=== PATIENT | male | born 1965 | race Caucasian/White ===

== ENCOUNTER 2016-09-23 14:57 | Emergency (ER) | payer MEDICARE ==
[~2016-09-23 14:57] MED LIST: AMITIZA8 MCG PO; ASAB PO; AT25 PO; BEN25 PO; CLARIT10 PO; CLOZAPINE PO; CLOZAPINE100 MG PO; COGEN1 PO; COREG3 PO; D.O.S.100 MG PO; DEP250 PO; DEPAKOTEER PO; FLOMAX4 PO; K-TABS10 MEQ PO; L40 PO; PRILOSEC40 MG PO; PRIN2.5 PO; PROAIRRESP INH; SPIRIVA INH; SYN1 PO; THIOTHIXENE PO; ZOCOR20 PO; ZYPREXA ZYDI20 MG PO
[2016-09-23 16:53] LABS: BASOPHILS 0.6 %; BASOPHILS ABSOLUTE 0.05 10/3/uL (0.0-0.16); EOSINOPHILS 5.1 %; EOSINOPHILS ABSOLUTE 0.45 10/3/uL (0.0-0.53); HEMATOCRIT 36.5 % (40.0-51.0); HEMOGLOBIN 12.5 g/dL (13.6-17.8); IMMATURE GRANULOCYTES 0.2 %; IMMATURE GRANULOCYTES ABSOLUTE 0.02 10/3/uL (0.0-0.11); LYMPHOCYTES 25.7 %; LYMPHOCYTES ABSOLUTE 2.26 10/3/uL (0.67-4.30); MEAN CORPUS HGB CONC 34.2 g/dL (32.0-36.0); MEAN CORPUSCULAR HEMOGLOB 32.1 pg (26.0-34.0); MEAN CORPUSCULAR VOLUME 93.8 fL (80-100); MEAN PLATELET VOLUME 9.5 fL (9.2-13.0); MONOCYTES 15.9 %; NEUTROPHILS 52.5 %; NEUTROPHILS ABSOLUTE 4.61 10/3/uL (2.02-8.40); RED CELL COUNT 3.89 10/6/uL (4.7-6.1); WHITE BLOOD CELLS 8.8 10/3/uL (4.5-10.5)
[2016-09-23 16:55] LABS: MANUAL DIFF NO %; PLATELET COUNT 279 10/3/uL (150-400)
[2016-09-23 17:12] LABS: CALCIUM, SERUM 9.1 MG/DL (8.5-10.4); CHLORIDE, SERUM 102 MMOL/L (96-112); CO2 (CARBON DIOXIDE) 27 MMOL/L (24-34); CREATININE 0.81 MG/DL (0.70-1.30); GFR AFRICAN AMERICAN 119 ML/MIN (>=60); GFR NON AFRICAN AMERICAN 103 ML/MIN (>=60); GLUCOSE, SERUM 83 MG/DL (60-99); SGOT(AST) 14 U/L (5-40); SGPT(ALT) 13 U/L (5-65); SODIUM, SERUM 140 MMOL/L (135-148); TOTAL BILIRUBIN 0.3 MG/DL (0-1.2)
[2016-09-23 17:14] LABS: ALBUMIN 3.8 G/DL (3.5-5.0); ALKALINE PHOSPHATASE 169 U/L (45-117); BUN (BLOOD UREA NITROGEN) 23 MG/DL (6-23); GLOBULIN 3.9 G/DL (2.5-4.1); POTASSIUM, SERUM 4.3 MMOL/L (3.5-5.3); TOTAL PROTEIN 7.7 G/DL (6.0-8.5)
[2016-09-23 17:23] LABS: ASCORBIC ACID (UR NOT ORDER) NEG (NEG); BILIRUBIN, URINE SMALL (NEG); KETONE, URINE TRACE MG/DL (NEG); LEUKOCYTE ESTERASE(NOT OR NEG (NEG); NITRITE (URINE) NEG (NEG); WBC (NOT ORDERED) (RFLEX) 5 (0-5)
[2016-09-23 17:26] LABS: ALCOHOL < 10 MG/DL (0)
[2016-09-23 17:50] LABS: AMPHETAMINES (NOT ORD) POS (NEG); BARBITURATES (NOT ORDERED NEG (NEG); BENZODIAZEPINES (NOT ORD) NEG (NEG); CANNABINOIDS (THC) NEG (NEG); COCAINE (NOT ORDERED) NEG (NEG); OPIATES NEG (NEG); PHENCYCLIDINE(PCP) NEG (NEG); TRICYCLICS NEG (NEG)
== END 2016-09-23 21:02 | disposition home or self-care (01) ==
LOC: ER 14:57
PROVIDERS: Physician Assistant
DX: F20.9 Schizophrenia, unspecified (principal); Z79.82 Long term (current) use of aspirin; Z79.899 Other long term (current) drug therapy
CPT/HCPCS: 80053; 80305; 81001; 85025; 99284; G0480